=== PATIENT | female | born 1935 | race Caucasian/White ===

== ENCOUNTER 2018-10-05 10:23 | Outpatient (CLI) | payer OTHER ==
[~2018-10-05 10:23] MED LIST: CATAFLAM50 MG PO
== END 2018-10-05 10:31 | disposition home or self-care (01) ==
LOC: SONOGRAMA 10:23
DX: C50.411 Malignant neoplasm of upper-outer quadrant of right female breast (principal); N60.12 Diffuse cystic mastopathy of left breast; N60.11 Diffuse cystic mastopathy of right breast

== ENCOUNTER 2019-02-11 10:00 | Outpatient (CLI) | payer OTHER | END 2019-02-11 11:00 | disposition home or self-care (01) | LOC: SONOGRAMA 10:00 | DX: N60.11 Diffuse cystic mastopathy of right breast (principal); N60.12 Diffuse cystic mastopathy of left breast ==

== ENCOUNTER 2021-01-25 09:57 | Outpatient (CLI) | payer OTHER | END 2021-01-25 10:03 | disposition home or self-care (01) | LOC: MAMO-SONO 09:57 → SONOGRAMA 10:00 → MAMO-SONO 10:00 | PROVIDERS: ATTEND Surgery | DX: R92.1 Mammographic calcification found on diagnostic imaging of breast (principal); N60.12 Diffuse cystic mastopathy of left breast; Z12.31 Encounter for screening mammogram for malignant neoplasm of breast ==

== ENCOUNTER 2022-03-24 10:32 | Outpatient (CLI) | payer OTHER | END 2022-03-24 10:33 | disposition home or self-care (01) | LOC: MAMO-SONO 10:32 | PROVIDERS: ATTEND Surgery | DX: Z12.31 Encounter for screening mammogram for malignant neoplasm of breast (principal); N60.11 Diffuse cystic mastopathy of right breast; N60.12 Diffuse cystic mastopathy of left breast ==

== ENCOUNTER 2023-04-25 08:59 | Outpatient (CLI) | payer OTHER | END 2023-04-25 09:03 | disposition home or self-care (01) | LOC: MAMO-SONO 08:59 | PROVIDERS: ATTEND Surgery | DX: N60.11 Diffuse cystic mastopathy of right breast (principal); N60.12 Diffuse cystic mastopathy of left breast; Z12.31 Encounter for screening mammogram for malignant neoplasm of breast ==

== ENCOUNTER 2024-05-01 15:55 | Outpatient (CLI) | payer OTHER | END 2024-05-01 15:56 | disposition home or self-care (01) | LOC: MAMO-SONO 15:55 | PROVIDERS: ATTEND Surgery | DX: C50.411 Malignant neoplasm of upper-outer quadrant of right female breast (principal); N60.11 Diffuse cystic mastopathy of right breast; N60.12 Diffuse cystic mastopathy of left breast; Z12.31 Encounter for screening mammogram for malignant neoplasm of breast ==